=== PATIENT | male | born 1980 | race Caucasian/White ===

== ENCOUNTER → 2017-02-23 | Outpatient (CLI) | payer OTHER ==
--- NOTE | 2017-02-23 15:24 | RADIOLOGY REPORT (SQ) ---
EXAM DESCRIPTION: U/S SCROTUM W/DOPPLER COMPLETED DATE/TIME: 02/23/2017 10:17 am REASON FOR STUDY: PAIN IN TESTICLE N50.819 TESTICULAR PAIN, UNSPECIFIED COMPARISON: None. TECHNIQUE: Static and realtime goldstein scale imaging of the scrotum and testes. Selected color Doppler and spectral images recorded to document blood flow. LIMITATIONS: None. FINDINGS: RIGHT: TESTICLE: Normal size, 33 x 29 x 18 mm. Normal echotexture, except for a 2 x 4 mm somewhat cystic juarez earing area beneath the capsule posteriorly in the mid testicle. Normal blood flow. No mass. EPIDIDYMIS: Normal, 7 x 8 x 7 mm. HYDROCELE OR VARICOCELE: No. HERNIA OR EXTRA-TESTICULAR MASS: No. OTHER: No other significant finding. LEFT: TESTICLE: Normal size, 36 x 25 x 21 mm. Normal echotexture. Normal blood flow. No mass. EPIDIDYMIS: Normal, 8 x 10 x 10 mm. HYDROCELE OR VARICOCELE: There is a 14 x 15 x 16 mm hydrocele. HERNIA OR EXTRA-TESTICULAR MASS: No. OTHER: No other significant finding. IMPRESSION: 1. There is a small subcapsular cyst on the right testicle measuring 2 x 4 mm. 2. There is a small left hydrocele. 3. There is no evidence of epididymitis or orchitis. TECHNICAL DOCUMENTATION: JOB ID: [id number] All Rights Reserved
== END ==
LOC: RAD 09:41
PROVIDERS: ATTEND Family Medicine
DX: N50.819 Testicular pain, unspecified (principal)
CPT/HCPCS: 76870; 93976